=== PATIENT | female | born 1945 | race Caucasian/White ===

== ENCOUNTER 2016-06-17 19:42 | Observation (INO) | payer MEDICARE ==
[~2016-06-17] VITALS: Ht 160 cm; Wt 88.4 kg
[~2016-06-17 19:42] MED LIST: AMLO2.5T PO; ASPI-621 PO; ATOR40TA PO; CALC1CAP8 PO; FEXO180T72 PO; FLUT9.9S NS; LACT1TAB4 PO; LEVO125T45 PO; LISI-170 PO; TICA90TA PO
[2016-06-17] MEDS ORDERED: SODIUM CHLORIDE 0.9% 1,000ML IVBOLUS ONE (20:00)
[2016-06-17] MEDS ORDERED: SODIUM CHLORIDE FLUSH 10ML SYR IVF ONE (20:00)
[2016-06-17] MEDS ORDERED: ASPIRIN 81 MG TABLET CHEW PO ONE (20:00)
[2016-06-17 20:34] LABS: ASPARTATE AMINO TRANSFERASE 20 U/L (15-37); BLOOD UREA NITROGEN 16 mg/dL (7-18)
[2016-06-17 20:39] LABS: IS PT STATUS REG ER OR PRE ER? YES
[2016-06-17] MEDS ORDERED: CLOP75TA PO (21:16)
[2016-06-17] MEDS ORDERED: CALCIUM PO (21:16)
[2016-06-17] MEDS ORDERED: FLUTICASONE (21:16)
[2016-06-17] MEDS ORDERED: ONDANSETRON 2MG/ML, 2ML IVPush PRN (22:00)
[2016-06-17] MEDS ORDERED: MORPHINE SULFATE 4 MG/ML, 1ML IVPush PRN (22:00)
[2016-06-17] MEDS: SODIUM CHLORIDE 0.9% 1,000 ML IV SCH (22:55)
[2016-06-17] MEDS ORDERED: TRAZODONE 50MG TABLET PO PRN (23:00)
[2016-06-17] MEDS ORDERED: ENOXAPARIN 40 MG/0.4 ML SQ SCH (23:00)
[2016-06-17] MEDS ORDERED: ATORVASTATIN 40 MG TABLET PO SCH (23:00)
[2016-06-17] MEDS ORDERED: POLYETHYLENE GLYCOL 17 GM PACKET PO PRN (23:00)
[2016-06-17] MEDS ORDERED: BISACODYL 10 MG SUPP PR PRN (23:00)
[2016-06-17] MEDS ORDERED: ACETAMINOPHEN 325 MG TABLET PO PRN (23:00)
[2016-06-17] MEDS ORDERED: LABETALOL 5MG/ML, 20ML IV PRN (23:00)
[2016-06-17] MEDS ORDERED: DOCUSATE 100 MG CAPSULE PO PRN (23:00)
[2016-06-17] MEDS ORDERED: ONDANSETRON ODT 4 MG PO PRN (23:00)
[2016-06-17 23:08] VITALS: BP 123/75
[2016-06-18 04:37] VITALS: BP 110/71
[2016-06-18 05:12] LABS: BLOOD UREA NITROGEN 13 mg/dL (7-18)
[2016-06-18 05:19] LABS: ASPARTATE AMINO TRANSFERASE 16 U/L (15-37)
[2016-06-18 05:25] LABS: IS PT STATUS REG ER OR PRE ER? NO
[2016-06-18 08:40] VITALS: BP 133/83
[2016-06-18] MEDS ORDERED: LORATADINE 10 MG TABLET PO SCH (09:00)
[2016-06-18] MEDS ORDERED: ASPIRIN 81 MG TABLET EC PO SCH (09:00)
[2016-06-18] MEDS ORDERED: LISINOPRIL 20 MG TABLET PO SCH (09:00)
[2016-06-18] MEDS ORDERED: CLOPIDOGREL 75 MG TABLET PO SCH (09:00)
[2016-06-18] MEDS ORDERED: LEVOTHYROXINE 125 MCG TABLET PO SCH (09:00)
[2016-06-18] MEDS ORDERED: AMLODIPINE 2.5 MG TABLET PO SCH (09:00)
[2016-06-18] MEDS: SODIUM CHLORIDE 0.9% 1,000 ML IV SCH (09:03)
[2016-06-18 10:56] LABS: IS PT STATUS REG ER OR PRE ER? NO
== END 2016-06-18 14:46 | disposition home or self-care (01) ==
LOC: ED 21:34 → INTOOBSV 21:36 → EDIP 21:36 → 5SO 23:02
PROVIDERS: ADMIT Internal Medicine; ATTEND Internal Medicine
DX: R07.9 Chest pain, unspecified (principal); I25.2 Old myocardial infarction; E03.9 Hypothyroidism, unspecified; K21.9 Gastro-esophageal reflux disease without esophagitis; I25.10 Atherosclerotic heart disease of native coronary artery without angina pectoris; E87.1 Hypo-osmolality and hyponatremia; I10 Essential (primary) hypertension; Z85.850 Personal history of malignant neoplasm of thyroid; Z95.5 Presence of coronary angioplasty implant and graft
CPT/HCPCS: 36415; 71020; 80053; 83735; 84439; 84443; 84484; 85025; 93005; 96360; 96361; 96372; 99285; G0378; J1650; J7030

== ENCOUNTER 2016-06-29 06:31 | Day surgery (SDC) | payer MEDICARE ==
[2016-06-28 11:21] VITALS: BP 127/79
[2016-06-28 12:35] LABS: BLOOD UREA NITROGEN 17 mg/dL (7-18)
[~2016-06-29] VITALS: Ht 157.5 cm; Wt 87.7 kg
[~2016-06-29 06:31] MED LIST changes: +ASPI-496 PO; +CALCIUM PO; +CLOP75TA PO; +FLUT16SP NS; +FLUTICASONE
[2016-06-29] MEDS ORDERED: SODIUM CHLORIDE 0.9% 1,000 ML IV SCH (06:40)
[2016-06-29] MEDS ORDERED: FENTANYL PF 100 MCG/2ML ONE (06:55)
[2016-06-29] MEDS ORDERED: LIDOCAINE 2%, 20ML ONE (06:55)
[2016-06-29] MEDS ORDERED: MIDAZOLAM 1 MG/ML, 5ML ONE (06:55)
[2016-06-29] MEDS ORDERED: ZOLPIDEM 5MG TABLET PO PRN (07:00)
[2016-06-29] MEDS ORDERED: ACETAMINOPHEN 325 MG TABLET PO PRN (07:00)
[2016-06-29] MEDS ORDERED: BISACODYL 10 MG SUPP PR PRN (07:00)
[2016-06-29] MEDS ORDERED: ASPIRIN 325 MG TABLET EC PO ONE (07:00)
[2016-06-29] MEDS ORDERED: ONDANSETRON 2MG/ML, 2ML IVPush PRN (07:00)
== END 2016-06-29 10:45 | disposition home or self-care (01) ==
LOC: CACL 06:31
PROVIDERS: ATTEND Internal Medicine Cardiovascular Disease
DX: I25.119 Atherosclerotic heart disease of native coronary artery with unspecified angina pectoris (principal); I10 Essential (primary) hypertension; Z95.5 Presence of coronary angioplasty implant and graft; E78.5 Hyperlipidemia, unspecified; K21.9 Gastro-esophageal reflux disease without esophagitis; E89.0 Postprocedural hypothyroidism; Z85.850 Personal history of malignant neoplasm of thyroid; I25.2 Old myocardial infarction; Z88.3 Allergy status to other anti-infective agents; E55.9 Vitamin D deficiency, unspecified; E66.01 Morbid (severe) obesity due to excess calories; Z68.35 Body mass index [BMI] 35.0-35.9, adult; Z79.01 Long term (current) use of anticoagulants
CPT/HCPCS: 36415; 80048; 85025; 85610; 85730; 93458; C1760; C1894; J2250; J3010; J3490; Q9967

== ENCOUNTER → 2017-03-09 | Outpatient (CLI) | payer MEDICARE ==
[~2017-03-09] MED LIST changes: +FEXO180T15 PO; +FEXO60TA9 PO; -LEVO125T45 PO; +LEVO125T63 PO; +LOSA100T6 PO; +[UNRECOGNIZED DRUG - REMARK]
== END | disposition home or self-care (01) ==
LOC: PETCFH 07:35
PROVIDERS: ATTEND Internal Medicine Endocrinology, Diabetes & Metabolism
DX: C73 Malignant neoplasm of thyroid gland (principal)
CPT/HCPCS: 78815; A9552

== ENCOUNTER 2017-05-06 13:49 | Emergency (ER) | payer MEDICARE ==
[~2017-05-06] VITALS: Ht 160 cm; Wt 90.5 kg
[2017-05-06 13:51] VITALS: BP 172/72
[2017-05-06 14:24] LABS: MICROSCOPIC AUTO
[2017-05-06 14:54] LABS: CULTURE INDICATED? YES
[2017-05-06] MEDS ORDERED: METHOCARBAMOL 750 MG TABLET ONE (15:11)
[2017-05-06] MEDS ORDERED: METHOCARBAMOL 750 MG TABLET PO ONE (15:30)
== END 2017-05-06 15:21 | disposition home or self-care (01) ==
LOC: ED 15:00
DX: S39.012A Strain of muscle, fascia and tendon of lower back, initial encounter (principal); K21.9 Gastro-esophageal reflux disease without esophagitis; E78.00 Pure hypercholesterolemia, unspecified; E11.9 Type 2 diabetes mellitus without complications; E03.9 Hypothyroidism, unspecified; I10 Essential (primary) hypertension; Y93.89 Activity, other specified; Y92.89 Other specified places as the place of occurrence of the external cause; Y99.8 Other external cause status; Z85.850 Personal history of malignant neoplasm of thyroid; X58.XXXA Exposure to other specified factors, initial encounter
CPT/HCPCS: 81001; 87086; 99284

== ENCOUNTER 2017-05-16 21:56 | Emergency (ER) | payer MEDICARE ==
[~2017-05-16] VITALS: Ht 160 cm; Wt 90.8 kg
[2017-05-16] MEDS ORDERED: SODIUM CHLORIDE FLUSH 10ML SYR IVF ONE (22:30)
[2017-05-16] MEDS ORDERED: ASPIRIN 81 MG TABLET CHEW PO ONE (22:30)
[2017-05-16] MEDS ORDERED: ASPIRIN 81 MG TABLET CHEW ONE (22:41)
[2017-05-16 22:43] VITALS: BP 145/81
[2017-05-16 22:47] LABS: BASOPHILS # (AUTO) 0.04 x10^3/uL (0-0.1); BASOPHILS % (AUTO) 1 % (0-1); EOSINOPHILS # (AUTO) 0.19 x10^3/uL (0-0.4); EOSINOPHILS % (AUTO) 3 % (1-7); LYMPHOCYTES # (AUTO) 2.09 x10^3/uL (1-3.4); LYMPHOCYTES % (AUTO) 35 % (22-44); MD NO; MEAN CORPUSCULAR HEMOGLOBIN 29.7 pg (27.0-34.8); MEAN CORPUSCULAR HGB CONC 34.1 g/dL (32.4-35.8); MEAN CORPUSCULAR VOLUME 87.1 fL (80-100); MEAN PLATELET VOLUME 7.9 fL (7.4-10.4); MONOCYTES % (AUTO) 7 % (2-9); NEUTROPHILS % (AUTO) 55 % (42-75); PLATELET COUNT 279 x10^3/uL (130-400); RED BLOOD COUNT 4.37 x10^6/uL (3.82-5.3); RED CELL DISTRIBUTION WIDTH 12.8 % (9.6-15.2)
[2017-05-16 22:57] LABS: ALBUMIN 3.5 g/dL (3.4-5.0); ANION GAP 8 mmol/L (5-15); CALCIUM 8.4 mg/dL (8.5-10.1); CHLORIDE 103 mmol/L (98-107); CREATININE 0.82 mg/dL (0.55-1.02)
[2017-05-16 23:03] LABS: TROPONIN I < 0.015 ng/mL (0.000-0.045)
== END 2017-05-16 23:47 | disposition home or self-care (01) ==
LOC: ED 23:15
DX: R07.2 Precordial pain (principal); R06.00 Dyspnea, unspecified; C73 Malignant neoplasm of thyroid gland; E03.9 Hypothyroidism, unspecified; E11.9 Type 2 diabetes mellitus without complications; F41.9 Anxiety disorder, unspecified; I10 Essential (primary) hypertension; J45.909 Unspecified asthma, uncomplicated; K21.9 Gastro-esophageal reflux disease without esophagitis; Z95.5 Presence of coronary angioplasty implant and graft
CPT/HCPCS: 36415; 71045; 80048; 82040; 84484; 85025; 93005; 99285

== ENCOUNTER 2018-02-18 01:01 | Emergency (ER) | payer MEDICARE ==
[~2018-02-18] VITALS: Ht 160 cm; Wt 90.0 kg
[~2018-02-18 01:01] MED LIST changes: -AMLO2.5T PO; +AMLO2.5T3 PO; -ASPI-621 PO; +ASPI81TA45 PO; -LOSA100T6 PO; +LOSA100T7 PO
--- NOTE | 2018-02-18 01:15 | NUR ---
PT PRESENTED WITH C/O LLQ ABD PAIN X12 HOURS WITH NAUSEA. MONITORS APPLIED, SIDERAILS X2 UP, CALL LIGHT WITHIN REACH.
--- NOTE | 2018-02-18 01:18 | NUR ---
urine sample sent
[2018-02-18 01:27] LABS: MICROSCOPIC AUTO
[2018-02-18 01:29] LABS: CULTURE INDICATED? YES
[2018-02-18 01:29] LABS: BASOPHILS # (AUTO) 0.04 x10^3/uL (0-0.1); BASOPHILS % (AUTO) 0 % (0-1); EOSINOPHILS # (AUTO) 0.21 x10^3/uL (0-0.4); EOSINOPHILS % (AUTO) 2 % (1-7); LYMPHOCYTES # (AUTO) 1.86 x10^3/uL (1-3.4); LYMPHOCYTES % (AUTO) 21 % (22-44); MD NO; MEAN CORPUSCULAR HGB CONC 33.5 g/dL (32.4-35.8); MEAN CORPUSCULAR VOLUME 86.4 fL (80-100); MEAN PLATELET VOLUME 8.4 fL (7.4-10.4); MONOCYTES # (AUTO) 0.54 x10^3/uL (0.2-0.8); MONOCYTES % (AUTO) 6 % (2-9); NEUTROPHILS # (AUTO) 6.21 x10^3/uL (1.8-6.8); NEUTROPHILS % (AUTO) 70 % (42-75); PLATELET COUNT 250 x10^3/uL (130-400); RED CELL DISTRIBUTION WIDTH 13.3 % (9.6-15.2)
[2018-02-18 01:41] LABS: ALANINE AMINOTRANSFERASE 29 U/L (12-78); ANION GAP 8 mmol/L (5-15); CALCIUM 8.6 mg/dL (8.5-10.1); CHLORIDE 105 mmol/L (98-107); CREATININE 0.82 mg/dL (0.55-1.02)
[2018-02-18 01:43] LABS: ALKALINE PHOSPHATASE 70 U/L (45-117); BILIRUBIN,TOTAL 0.4 mg/dL (0.2-1.0); TOTAL PROTEIN 7.8 g/dL (6.4-8.2)
--- NOTE | 2018-02-18 01:56 | NUR ---
IV SITE STARTED. PT TO CT
[2018-02-18] MEDS ORDERED: OMNIPAQUE 350 MG/ML, 100ML BOTTLE ONE (02:00)
[2018-02-18 02:28] VITALS: BP 140/82
[2018-02-18] MEDS ORDERED: FLUT100B INH (02:28)
[2018-02-18] MEDS ORDERED: FENO145T32 PO (02:28)
--- NOTE | 2018-02-18 02:30 | NUR ---
PT RESTING ON [place], MONITORS IN PLACE, CALL LIGHT WITHIN REACH, CHART UP FOR RECHECK.
--- NOTE | 2018-02-18 02:35 | NUR ---
pa at bedside for recheck
--- NOTE | 2018-02-18 02:39 | NUR ---
IV SITE D/C'D, 2X2 DRSG APPLIED, HOMESTATIS ACHIEVED.
[2018-02-18] MEDS ORDERED: CIPROFLOXACIN 500 MG TABLET ONE (02:48)
[2018-02-18] MEDS ORDERED: HYDROcodone/APAP 5/325 TABLET ONE (02:49)
--- NOTE | 2018-02-18 02:51 | NUR ---
PT MEDICATED PER MAR
[2018-02-18] MEDS ORDERED: HYDROcodone/APAP 5/325 TABLET PO ONE (03:00)
[2018-02-18] MEDS ORDERED: CIPROFLOXACIN 500 MG TABLET PO ONE (03:00)
== END 2018-02-18 03:04 | disposition home or self-care (01) ==
LOC: ED 01:18
DX: K57.32 Diverticulitis of large intestine without perforation or abscess without bleeding (principal); E03.9 Hypothyroidism, unspecified; K21.9 Gastro-esophageal reflux disease without esophagitis; E78.00 Pure hypercholesterolemia, unspecified; E78.5 Hyperlipidemia, unspecified; I25.2 Old myocardial infarction; I25.10 Atherosclerotic heart disease of native coronary artery without angina pectoris; J45.909 Unspecified asthma, uncomplicated; Z90.710 Acquired absence of both cervix and uterus
CPT/HCPCS: 36415; 74177; 80053; 81001; 83690; 85025; 87086; 99284; Q9967

== ENCOUNTER 2018-02-28 21:07 | Inpatient (IN) | payer MEDICARE ==
[~2018-02-28] VITALS: Ht 157.5 cm; Wt 87.1 kg
[~2018-02-28 21:07] MED LIST changes: +FENO145T32 PO; +FLUT100B INH
--- NOTE | 2018-02-28 22:32 | NUR ---
TO ROOM FROM LOBBY. NAD.
--- NOTE | 2018-02-28 22:51 | NUR ---
PT. TO BR AND BACK TO ROOM AFTER PROVIDING URINE SAMPLE. PT. AMBULATES WITH STEADY GIAT. PT. REPORTS WAS HERE FOR DIVERTICULITIS WAS GIVEN ABX AND TOOK ENTIRE COURSE; WENT TO PRIMARY CARE ON AND RX FOR NEW ABD GIVEN AND HAS BEEN TAKING AUGMENTIN ORDERED WELL PAIN MEDS. PT. REPORTS PAIN HAS GOTTEN WORSE AND NOT BETTER. DENIES DIARRHEA; LAST BM TODAY, DENIES ANY LOOSE STOOLS. C/O NAUSEA BUT NO VOMITING. SISTER AT BS WITH PT. CONTINUOUS PULSE OX AND B/P MONITORS PLACED. CALL LIGHT IN REACH. ALL SAFETY MEASURES OBSERVED.
--- NOTE | 2018-02-28 22:59 | NUR ---
DR. MCLAUGHLIN AT BS TO EVAL PT. AND DISCUSS POC.
[2018-02-28 23:02] LABS: BASOPHILS # (AUTO) 0.03 x10^3/uL (0-0.1); BASOPHILS % (AUTO) 0 % (0-1); EOSINOPHILS # (AUTO) 0.19 x10^3/uL (0-0.4); EOSINOPHILS % (AUTO) 2 % (1-7); LYMPHOCYTES % (AUTO) 20 % (22-44); MD NO; MEAN CORPUSCULAR HEMOGLOBIN 28.8 pg (27.0-34.8); MEAN CORPUSCULAR HGB CONC 33.6 g/dL (32.4-35.8); MEAN CORPUSCULAR VOLUME 85.6 fL (80-100); MEAN PLATELET VOLUME 7.6 fL (7.4-10.4); MONOCYTES # (AUTO) 0.64 x10^3/uL (0.2-0.8); MONOCYTES % (AUTO) 7 % (2-9); NEUTROPHILS # (AUTO) 6.66 x10^3/uL (1.8-6.8); NEUTROPHILS % (AUTO) 71 % (42-75); PLATELET COUNT 333 x10^3/uL (130-400); RED BLOOD COUNT 4.51 x10^6/uL (3.82-5.3); RED CELL DISTRIBUTION WIDTH 13.3 % (9.6-15.2)
[2018-02-28] MEDS ORDERED: ACETAMINOPHEN 500 MG TABLET ONE (23:08)
[2018-02-28 23:12] LABS: ALANINE AMINOTRANSFERASE 20 U/L (12-78); ALBUMIN 3.8 g/dL (3.4-5.0); ANION GAP 8 mmol/L (5-15); CALCIUM 8.8 mg/dL (8.5-10.1); CHLORIDE 101 mmol/L (98-107); CREATININE 0.67 mg/dL (0.55-1.02)
[2018-02-28 23:14] LABS: ALKALINE PHOSPHATASE 61 U/L (45-117); BILIRUBIN,TOTAL 0.4 mg/dL (0.2-1.0); TOTAL PROTEIN 7.7 g/dL (6.4-8.2)
[2018-02-28 23:17] LABS: MICROSCOPIC NOT IND
--- NOTE | 2018-02-28 23:18 | NUR ---
PT. MEDICATED PER APR FOR 310 LEFT LOWER QUAD ABD PAIN. PT. REPORTS PAIN COMES AND GOES AND WHEN IT IS AT IT'S WORST IT'S VERY SHARP AND 8-9/10. IV STARTED. LABS HAVE ALL BEEN DRAWN. URINE SENT TO LAB. AWAITING CT.
[2018-02-28 23:24] LABS: CULTURE INDICATED? NO
[2018-02-28] MEDS ORDERED: ACETAMINOPHEN 500 MG TABLET PO ONE (23:30)
--- NOTE | 2018-02-28 23:33 | NUR ---
PT REPORT FROM VERNON MARTINEZ. THIS RN TO ASSUME CARE OF PT. PT TO CT.
[2018-02-28] MEDS ORDERED: OMNIPAQUE 350 MG/ML, 100ML BOTTLE ONE (23:45)
--- NOTE | 2018-03-01 00:08 | NUR ---
PT. REPORTS NO PAIN AT THIS TIME. VS UPDATED. AWAITING CT RESULTS. PT. DENIES NEEDS. ALL SAFETY MEASUERS OBSERVED.
--- NOTE | 2018-03-01 00:59 | NUR ---
ALL RESULTS BACK. PT UP FOR RECHECK.
--- NOTE | 2018-03-01 01:10 | NUR ---
ANITRA. NO IMMEDIATE NEEDS FROM PT. FRIEND AT BEDSIDE. MD AT BEDSIDE FOR RECHECK. VSS. CALL LIGHT WITHIN REACH.
[2018-03-01] MEDS ORDERED: PIPERACILLIN/TAZO/PMX 3.375GM 50 ML ONE (01:58)
[2018-03-01] MEDS ORDERED: PIPERACILLIN/TAZO/PMX 3.375GM 50 ML IV ONE (02:00)
--- NOTE | 2018-03-01 02:14 | NUR ---
PT GIVEN SANDWICH AT THIS TIME PER MD ORDER.
[2018-03-01] MEDS ORDERED: DOCUSATE 100 MG CAPSULE PO PRN (02:30)
[2018-03-01] MEDS ORDERED: morphine SULFATE 10 MG/ML, 1ML IVPush PRN (02:30)
[2018-03-01] MEDS ORDERED: ACETAMINOPHEN 325 MG TABLET PO PRN (02:30)
[2018-03-01] MEDS ORDERED: POLYETHYLENE GLYCOL 17 GM PACKET PO PRN (02:30)
[2018-03-01] MEDS ORDERED: GABAPENTIN 300 MG CAPSULE PO PRN (02:30)
[2018-03-01] MEDS ORDERED: PROMETHAZINE 25 MG/ML, 1ML IM PRN (02:30)
[2018-03-01] MEDS ORDERED: hydrALAzine 20 MG/ML, 1ML IVPush PRN (02:30)
[2018-03-01] MEDS ORDERED: ONDANSETRON 2MG/ML, 2ML IVPush PRN (02:30)
[2018-03-01] MEDS ORDERED: ONDANSETRON ODT 4 MG PO PRN (02:30)
[2018-03-01] MEDS ORDERED: OXYcodone IR 5MG TABLET PO PRN (02:30)
[2018-03-01] MEDS ORDERED: LABETALOL 5MG/ML, 20ML IVPush PRN (02:30)
[2018-03-01 03:00] VITALS: BP 117/72
[2018-03-01 03:05] LABS: FREE T4 (FREE THYROXINE) 1.74 ng/dL (0.76-1.46); THYROID STIMULATING HORMONE 0.09 mIU/L (0.358-3.740)
[2018-03-01 03:11] LABS: HEMOGLOBIN A1C 6.8 % (4.2-6.3)
[2018-03-01] MEDS: SODIUM CHLORIDE 0.9% 1,000 ML IV SCH ×2 (04:06→15:00)
[2018-03-01] MEDS: ASPIRIN 81 MG TABLET EC PO SCH (05:53)
[2018-03-01] MEDS: LEVOTHYROXINE 125 MCG TABLET PO SCH (05:53)
[2018-03-01 06:54] VITALS: BP 108/70
[2018-03-01] MEDS: PIPERACILLIN/TAZO/PMX 3.375GM 50 ML IV SCH ×3 (08:27→20:37)
[2018-03-01] MEDS: FENOFIBRATE 145 MG TABLET PO SCH (08:28)
[2018-03-01] MEDS: CLOPIDOGREL 75 MG TABLET PO SCH (08:28)
[2018-03-01] MEDS: CALCIUM CARBONATE 500 MG TABLET PO SCH (08:28)
[2018-03-01] MEDS: LOSARTAN 50MG TABLET PO SCH (08:28)
[2018-03-01] MEDS: LORATADINE 10 MG TABLET PO SCH (08:28)
[2018-03-01] MEDS: AMLODIPINE 2.5 MG TABLET PO SCH (08:28)
[2018-03-01] MEDS ORDERED: BUDESONIDE 0.5 MG/2 ML INHA NPPB SCH (09:00)
[2018-03-01] MEDS: FLUTICASONE NASAL SPRAY 16GM NAS SCH (09:40)
[2018-03-01 14:00] VITALS: BP 125/74
[2018-03-01 16:42] VITALS: BP 125/74
[2018-03-01 18:55] VITALS: BP 128/75
[2018-03-01] MEDS: ATORVASTATIN 40 MG TABLET PO SCH (20:37)
[2018-03-02 01:22] VITALS: BP 107/70
[2018-03-02] MEDS: PIPERACILLIN/TAZO/PMX 3.375GM 50 ML IV SCH ×4 (01:42→20:20)
[2018-03-02 05:41] LABS: BASOPHILS # (AUTO) 0.04 x10^3/uL (0-0.1); BASOPHILS % (AUTO) 1 % (0-1); EOSINOPHILS # (AUTO) 0.22 x10^3/uL (0-0.4); EOSINOPHILS % (AUTO) 4 % (1-7); LYMPHOCYTES # (AUTO) 1.63 x10^3/uL (1-3.4); LYMPHOCYTES % (AUTO) 30 % (22-44); MD NO; MEAN CORPUSCULAR HEMOGLOBIN 29.2 pg (27.0-34.8); MEAN CORPUSCULAR VOLUME 85.8 fL (80-100); MEAN PLATELET VOLUME 7.7 fL (7.4-10.4); MONOCYTES # (AUTO) 0.41 x10^3/uL (0.2-0.8); MONOCYTES % (AUTO) 8 % (2-9); NEUTROPHILS # (AUTO) 3.13 x10^3/uL (1.8-6.8); NEUTROPHILS % (AUTO) 58 % (42-75); PLATELET COUNT 267 x10^3/uL (130-400); RED BLOOD COUNT 3.78 x10^6/uL (3.82-5.3); RED CELL DISTRIBUTION WIDTH 13.4 % (9.6-15.2)
[2018-03-02 05:52] LABS: CHLORIDE 107 mmol/L (98-107)
[2018-03-02 06:03] LABS: ALANINE AMINOTRANSFERASE 16 U/L (12-78); ALKALINE PHOSPHATASE 44 U/L (45-117); ANION GAP 7 mmol/L (5-15); BILIRUBIN,TOTAL 0.6 mg/dL (0.2-1.0); CALCIUM 8.1 mg/dL (8.5-10.1); CHOL/HDL RATIO 2.4; CHOLESTEROL, TOTAL 130 mg/dL (140-239); CREATININE 0.66 mg/dL (0.55-1.02); HDL CHOL % 42 % (28-40); HDL CHOLESTEROL (DIRECT) 54 mg/dL (40-60); LDL CHOLESTEROL,CALCULATED 58 mg/dL (54-169); LDL/HDL RATIO 1.1 (0.5-3.0); TOTAL PROTEIN 6.3 g/dL (6.4-8.2); TRIGLYCERIDES 92 mg/dL (50-200); VLDL CHOLESTEROL 18 mg/dL (0-25)
[2018-03-02] MEDS: LEVOTHYROXINE 125 MCG TABLET PO SCH (06:05)
[2018-03-02] MEDS: ASPIRIN 81 MG TABLET EC PO SCH (06:05)
[2018-03-02 06:33] VITALS: BP 123/79
[2018-03-02] MEDS: FLUTICASONE NASAL SPRAY 16GM NAS SCH (08:05)
[2018-03-02] MEDS: CALCIUM CARBONATE 500 MG TABLET PO SCH (08:06)
[2018-03-02] MEDS: AMLODIPINE 2.5 MG TABLET PO SCH (08:06)
[2018-03-02] MEDS: FENOFIBRATE 145 MG TABLET PO SCH (08:06)
[2018-03-02] MEDS: LOSARTAN 50MG TABLET PO SCH (08:06)
[2018-03-02] MEDS: LORATADINE 10 MG TABLET PO SCH (08:06)
[2018-03-02] MEDS: CLOPIDOGREL 75 MG TABLET PO SCH (08:07)
[2018-03-02] MEDS: FLUTICASONE FUROATE 100MCG/INH INH SCH (08:07)
[2018-03-02 12:43] VITALS: BP 129/80
[2018-03-02] MEDS: ATORVASTATIN 40 MG TABLET PO SCH (20:20)
[2018-03-02 21:46] VITALS: BP 111/70
[2018-03-03] MEDS: PIPERACILLIN/TAZO/PMX 3.375GM 50 ML IV SCH ×2 (02:15→07:57)
[2018-03-03 02:21] VITALS: BP 107/65
[2018-03-03 05:20] LABS: BASOPHILS # (AUTO) 0.05 x10^3/uL (0-0.1); BASOPHILS % (AUTO) 1 % (0-1); EOSINOPHILS # (AUTO) 0.14 x10^3/uL (0-0.4); EOSINOPHILS % (AUTO) 3 % (1-7); LYMPHOCYTES # (AUTO) 1.73 x10^3/uL (1-3.4); LYMPHOCYTES % (AUTO) 35 % (22-44); MD NO; MEAN CORPUSCULAR HEMOGLOBIN 28.5 pg (27.0-34.8); MEAN CORPUSCULAR HGB CONC 33.2 g/dL (32.4-35.8); MEAN CORPUSCULAR VOLUME 85.8 fL (80-100); MEAN PLATELET VOLUME 7.8 fL (7.4-10.4); MONOCYTES # (AUTO) 0.49 x10^3/uL (0.2-0.8); MONOCYTES % (AUTO) 10 % (2-9); NEUTROPHILS # (AUTO) 2.52 x10^3/uL (1.8-6.8); NEUTROPHILS % (AUTO) 51 % (42-75); PLATELET COUNT 281 x10^3/uL (130-400); RED BLOOD COUNT 3.92 x10^6/uL (3.82-5.3); RED CELL DISTRIBUTION WIDTH 13.4 % (9.6-15.2)
[2018-03-03 05:30] LABS: ANION GAP 6 mmol/L (5-15); CALCIUM 8.5 mg/dL (8.5-10.1); CHLORIDE 105 mmol/L (98-107)
[2018-03-03 05:31] LABS: CREATININE 0.77 mg/dL (0.55-1.02)
[2018-03-03] MEDS: ASPIRIN 81 MG TABLET EC PO SCH (06:10)
[2018-03-03] MEDS: LEVOTHYROXINE 125 MCG TABLET PO SCH (06:10)
[2018-03-03 06:50] VITALS: BP 128/75
[2018-03-03] MEDS: FENOFIBRATE 145 MG TABLET PO SCH (07:57)
[2018-03-03] MEDS: FLUTICASONE NASAL SPRAY 16GM NAS SCH (07:57)
[2018-03-03] MEDS: CALCIUM CARBONATE 500 MG TABLET PO SCH (07:57)
[2018-03-03] MEDS: AMLODIPINE 2.5 MG TABLET PO SCH (07:58)
[2018-03-03] MEDS: LORATADINE 10 MG TABLET PO SCH (07:58)
[2018-03-03] MEDS: CLOPIDOGREL 75 MG TABLET PO SCH (07:58)
[2018-03-03] MEDS: LOSARTAN 50MG TABLET PO SCH (07:58)
[2018-03-03] MEDS: FLUTICASONE FUROATE 100MCG/INH INH SCH (09:00)
== END 2018-03-03 11:35 | disposition home or self-care (01) | DRG 392 ==
LOC: ED 23:59 → EDIP 03-01 02:11 → 4NOR 03-01 02:53
PROVIDERS: ADMIT Internal Medicine; ATTEND Internal Medicine
DX: K57.32 Diverticulitis of large intestine without perforation or abscess without bleeding (principal); E87.1 Hypo-osmolality and hyponatremia; E11.9 Type 2 diabetes mellitus without complications; E78.5 Hyperlipidemia, unspecified; E89.0 Postprocedural hypothyroidism; I10 Essential (primary) hypertension; I25.10 Atherosclerotic heart disease of native coronary artery without angina pectoris; I25.2 Old myocardial infarction; J45.909 Unspecified asthma, uncomplicated; Z85.850 Personal history of malignant neoplasm of thyroid; Z88.3 Allergy status to other anti-infective agents; Z90.710 Acquired absence of both cervix and uterus; Z95.5 Presence of coronary angioplasty implant and graft; Z88.8 Allergy status to other drugs, medicaments and biological substances; Z91.018 Allergy to other foods; Z79.82 Long term (current) use of aspirin; Z79.899 Other long term (current) drug therapy
CPT/HCPCS: 36415; 74177; 80048; 80053; 80061; 81003; 83036; 83605; 83690; 83735; 84439; 84443; 85025; 87040; 96365; G0378; J2543; Q9967; J7030

== ENCOUNTER 2018-06-02 10:11 | Observation (INO) | payer MEDICARE ==
[~2018-06-02] VITALS: Ht 157.5 cm; Wt 84.5 kg
[~2018-06-02 10:11] MED LIST changes: -AMLO2.5T3 PO; +AMLO2.5T5 PO; +LOSA100T14 PO; -LOSA100T7 PO
--- NOTE | 2018-06-02 10:25 | NUR ---
PT PRESENTED TO ED WITH PALPITATIONS SINCE THIS AM WHILE SHE WAS BRUSHING HER TEETH. PT WITH HX: VT AND THYROID CANCER. PT A&OX4 AND UP INDEPENDENTLY. PT PLACED IN ROOM AND PLACED ON BP, CARDIAC, AND CONT. PULSE OXIMETER. ASSESSMENT COMPLETED. EKG DONE IN TRIAGE AND PRESENTED TO MD. CALL LIGHT IN REACH.
--- NOTE | 2018-06-02 10:36 | NUR ---
REPORT GIVEN TO DAX MARTINEZ
--- NOTE | 2018-06-02 10:45 | NUR ---
assumed care of tp. report from Ivet MARTINEZ. pt here c/o intermittent palpitations since this AM. nothing makes it better or worse. states that she has been having slight intermittent chest discomfort, but denies at this time. states that she has a hx of cardiac stent x1 about 2 years ago. states that she took 81mg ASA this AM. A&O x4. calm and cooperative. no apparent distress at this time. friend at bedside. repeat EKG at bedside
[2018-06-02] MEDS ORDERED: ASPIRIN 81 MG TABLET CHEW PO ONE (11:00)
[2018-06-02] MEDS ORDERED: NITROGLYCERIN SINGLE TAB 0.4 MG SL PRN (11:00)
[2018-06-02] MEDS ORDERED: SODIUM CHLORIDE FLUSH 10ML SYR IVF ONE (11:00)
--- NOTE | 2018-06-02 11:11 | NUR ---
BEDSIDE REPORT FROM DAX MARTINEZ, PT RESTING IN [facility] ON MONITOR WITH FRIEND AT BEDSIDE. EKG DONE
--- NOTE | 2018-06-02 11:12 | NUR ---
report to Jose Alejandro MARTINEZ
[2018-06-02 11:15] LABS: BASOPHILS # (AUTO) 0.04 x10^3/uL (0-0.1); BASOPHILS % (AUTO) 1 % (0-1); EOSINOPHILS # (AUTO) 0.15 x10^3/uL (0-0.4); EOSINOPHILS % (AUTO) 3 % (1-7); LYMPHOCYTES % (AUTO) 28 % (22-44); MD NO; MEAN CORPUSCULAR HEMOGLOBIN 28.8 pg (27.0-34.8); MEAN CORPUSCULAR HGB CONC 33.6 g/dL (32.4-35.8); MEAN CORPUSCULAR VOLUME 85.7 fL (80-100); MEAN PLATELET VOLUME 8.3 fL (7.4-10.4); MONOCYTES # (AUTO) 0.33 x10^3/uL (0.2-0.8); MONOCYTES % (AUTO) 6 % (2-9); NEUTROPHILS # (AUTO) 3.28 x10^3/uL (1.8-6.8); NEUTROPHILS % (AUTO) 62 % (42-75); PLATELET COUNT 286 x10^3/uL (130-400); RED BLOOD COUNT 4.41 x10^6/uL (3.82-5.3); RED CELL DISTRIBUTION WIDTH 14.2 % (9.6-15.2)
[2018-06-02] MEDS ORDERED: NITROGLYCERIN SINGLE TAB 0.4 MG SL ONE (11:16)
[2018-06-02 11:23] LABS: INTERNATIONAL NORMALIZED RATIO 1.03 (0.93-1.1); PROTHROMBIN TIME 10.8 Seconds (9.6-11.5)
[2018-06-02 11:25] LABS: ALBUMIN 3.6 g/dL (3.4-5.0); ANION GAP 8 mmol/L (5-15); CALCIUM 8.9 mg/dL (8.5-10.1); CHLORIDE 107 mmol/L (98-107); CREATININE 0.88 mg/dL (0.55-1.02)
[2018-06-02 11:28] LABS: TROPONIN I < 0.015 ng/mL (0.000-0.045)
--- NOTE | 2018-06-02 12:10 | NUR ---
PT RESTING IN [place] WITH FRIEND AT BEDSIDE, WATCHING TV, VSS. AWAITING LAB RESULTS
--- NOTE | 2018-06-02 12:58 | NUR ---
REPORT TO HAN RN, PT TO [phone]
[2018-06-02] MEDS ORDERED: SODIUM CHLORIDE FLUSH 10ML SYR IVF PRN (13:00)
[2018-06-02 13:17] VITALS: BP 102/58
[2018-06-02] MEDS ORDERED: FLUT1BLS INH (13:56)
[2018-06-02] MEDS ORDERED: LEVO125T5 PO (13:56)
[2018-06-02] MEDS ORDERED: DOCUSATE 100 MG CAPSULE PO PRN (14:30)
[2018-06-02] MEDS ORDERED: BISACODYL 10 MG SUPP PR PRN (14:30)
[2018-06-02] MEDS ORDERED: ALBUTEROL SULFATE 2.5 MG/3 ML HHN SCH (15:00)
[2018-06-02] MEDS ORDERED: BUDESONIDE 0.5 MG/2 ML INHA HHN SCH (15:00)
[2018-06-02] MEDS: HEPARIN 5,000 UNITS/ML, 1ML SQ SCH ×2 (15:09→22:21)
[2018-06-02 15:26] LABS: TROPONIN I < 0.015 ng/mL (0.000-0.045)
[2018-06-02 15:28] LABS: HEMOGLOBIN A1C 6.6 % (4.2-6.3)
[2018-06-02] MEDS ORDERED: MAALOX/HYOSCYAMINE/LIDOCAINE 45 ML BTL PO ONE (15:30)
[2018-06-02] MEDS ORDERED: ALBUTEROL SULFATE 2.5 MG/3 ML HHN PRN (16:30)
[2018-06-02 19:01] VITALS: BP 114/74
[2018-06-02] MEDS: SODIUM CHLORIDE FLUSH 10ML SYR IVF SCH (20:30)
[2018-06-02 20:44] LABS: TROPONIN I < 0.015 ng/mL (0.000-0.045)
[2018-06-02] MEDS ORDERED: ATORVASTATIN 40 MG TABLET PO SCH (21:00)
[2018-06-03 02:45] VITALS: BP 133/79
[2018-06-03 04:57] LABS: BASOPHILS # (AUTO) 0.03 x10^3/uL (0-0.1); BASOPHILS % (AUTO) 1 % (0-1); EOSINOPHILS # (AUTO) 0.23 x10^3/uL (0-0.4); EOSINOPHILS % (AUTO) 4 % (1-7); LYMPHOCYTES # (AUTO) 2.13 x10^3/uL (1-3.4); LYMPHOCYTES % (AUTO) 36 % (22-44); MD NO; MEAN CORPUSCULAR HEMOGLOBIN 28.8 pg (27.0-34.8); MEAN CORPUSCULAR HGB CONC 33.7 g/dL (32.4-35.8); MEAN CORPUSCULAR VOLUME 85.4 fL (80-100); MEAN PLATELET VOLUME 8.1 fL (7.4-10.4); MONOCYTES # (AUTO) 0.49 x10^3/uL (0.2-0.8); MONOCYTES % (AUTO) 8 % (2-9); NEUTROPHILS # (AUTO) 3.02 x10^3/uL (1.8-6.8); NEUTROPHILS % (AUTO) 51 % (42-75); PLATELET COUNT 250 x10^3/uL (130-400); RED BLOOD COUNT 4.22 x10^6/uL (3.82-5.3); RED CELL DISTRIBUTION WIDTH 14.4 % (9.6-15.2)
[2018-06-03 05:08] LABS: ALBUMIN 3.6 g/dL (3.4-5.0); ANION GAP 6 mmol/L (5-15); CALCIUM 8.2 mg/dL (8.5-10.1); CHLORIDE 108 mmol/L (98-107)
[2018-06-03 05:12] LABS: ALANINE AMINOTRANSFERASE 26 U/L (12-78); ALKALINE PHOSPHATASE 58 U/L (45-117); BILIRUBIN,TOTAL 0.4 mg/dL (0.2-1.0); CREATININE 0.72 mg/dL (0.55-1.02); TOTAL PROTEIN 6.5 g/dL (6.4-8.2)
[2018-06-03] MEDS: HEPARIN 5,000 UNITS/ML, 1ML SQ SCH ×2 (06:30→13:21)
[2018-06-03] MEDS ORDERED: LEVOTHYROXINE 25 MCG TABLET ONE ×3 (07:56→08:17)
[2018-06-03] MEDS ORDERED: LEVOTHYROXINE 100 MCG TABLET ONE ×2 (07:58→08:16)
[2018-06-03] MEDS: SODIUM CHLORIDE FLUSH 10ML SYR IVF SCH (08:10)
[2018-06-03 08:24] VITALS: BP 129/78
[2018-06-03] MEDS ORDERED: LOSARTAN 50MG TABLET PO SCH (09:00)
[2018-06-03] MEDS ORDERED: FLUTICASONE/VILANTEROL 200-25MCG/INH INH SCH (09:00)
[2018-06-03] MEDS ORDERED: CALCIUM CARBONATE 500 MG TABLET PO SCH (09:00)
[2018-06-03] MEDS ORDERED: FENOFIBRATE 145 MG TABLET PO SCH (09:00)
[2018-06-03] MEDS ORDERED: CETIRIZINE 10 MG TABLET PO SCH (09:00)
[2018-06-03] MEDS ORDERED: AMLODIPINE 2.5 MG TABLET PO SCH (09:00)
[2018-06-03] MEDS ORDERED: FLUTICASONE NASAL SPRAY 16GM NAS SCH (09:00)
[2018-06-03] MEDS ORDERED: ASPIRIN 81 MG TABLET EC PO SCH (09:00)
[2018-06-03] MEDS ORDERED: LEVOTHYROXINE 125 MCG TABLET PO SCH (09:00)
[2018-06-03] MEDS ORDERED: D5%-0.45% NACL 1,000 ML IV SCH (09:30)
[2018-06-03] MEDS ORDERED: REGADENOSON 0.4 MG/5 ML SYRINGE ONE (11:07)
[2018-06-03 13:00] VITALS: BP 124/68
[2018-06-04] MEDS ORDERED: LEVOTHYROXINE 125 MCG TABLET PO SCH (06:00)
== END 2018-06-03 16:10 | disposition home or self-care (01) ==
LOC: ED 11:05 → EDIP 12:32 → INTOOBSV 12:32 → 5SO 13:19
PROVIDERS: ADMIT Hospitalist; ATTEND Hospitalist
DX: R07.89 Other chest pain (principal); I25.110 Atherosclerotic heart disease of native coronary artery with unstable angina pectoris; J98.11 Atelectasis; E03.9 Hypothyroidism, unspecified; E11.9 Type 2 diabetes mellitus without complications; E78.5 Hyperlipidemia, unspecified; Z66 Do not resuscitate; F41.1 Generalized anxiety disorder; I10 Essential (primary) hypertension; J45.909 Unspecified asthma, uncomplicated; K21.9 Gastro-esophageal reflux disease without esophagitis; R00.2 Palpitations; Z85.850 Personal history of malignant neoplasm of thyroid; I25.2 Old myocardial infarction; Z95.5 Presence of coronary angioplasty implant and graft; Z98.51 Tubal ligation status; Z88.8 Allergy status to other drugs, medicaments and biological substances; Z79.82 Long term (current) use of aspirin; Z79.899 Other long term (current) drug therapy
CPT/HCPCS: 36415; 71045; 78452; 80048; 80053; 82040; 83036; 83735; 83880; 84484; 85025; 85610; 85730; 93005; 93017; 99285; A9502; C9898; G0378; J2785

== ENCOUNTER 2019-04-18 05:27 | Observation (INO) | payer MEDICARE ==
[~2019-04-18] VITALS: Ht 157.5 cm; Wt 86.1 kg
[~2019-04-18 05:27] MED LIST changes: -FLUT16SP NS; +FLUT16SP24 NS; +FLUT1BLS INH; +LEVO125T5 PO
--- NOTE | 2019-04-18 05:56 | NUR ---
THIS IS A 73 YO FEMALE COMING IN FOR SOB AND "CHEST PRESSURE" STARTING LAST NIGHT. PATIENT STATES "THE SENSATION WAS THERE WHEN I LAYED DOWN TO GO TO BED, BUT IT DIDN'T HURT. THEN I WOKE UP AT 0330 AND IT WAS BACK SO I FIGURED WITH MY HISTORY I SHOULD COME IN AND GET CHECKED". PATIENT HAS HX OF PREVIOUS MN IN JANUARY 2016 WITH STENTS PLACED. PATIENT SPEAKING IN FULL SENTENCES, DENIES PAIN AT THIS TIME, DESCRIBES IT "IT'S MORE OF A SENSATION AND IT GOES DOWN MY LEFT ARM A LITTLE". DENIES N/V, NO DIAPHORESIS, DENIES ANY TRAUMA OR EVENT THAT COULD CAUSE MUSCLE STRAIN. VSS, NAD, ALL MONITORING IN PLACE, NSR ON MONITOR. CALL LIGHT IN REACH.
[2019-04-18] MEDS ORDERED: NITROGLYCERIN SINGLE TAB 0.4 MG SL PRN (06:00)
[2019-04-18] MEDS ORDERED: ASPIRIN 81 MG TABLET CHEW PO ONE (06:00)
[2019-04-18] MEDS ORDERED: NITROGLYCERIN SINGLE TAB 0.4 MG SL ONE (06:00)
[2019-04-18] MEDS ORDERED: ASPIRIN 81 MG TABLET CHEW ONE (06:01)
--- NOTE | 2019-04-18 06:07 | NUR ---
PATIENT MEDICATED PER EMAR, TOLERATED WELL. PT TO XRAY AT THIS TIME
[2019-04-18 06:37] LABS: BASOPHILS # (AUTO) 0.05 x10^3/uL (0-0.1); BASOPHILS % (AUTO) 1 % (0-1); EOSINOPHILS # (AUTO) 0.15 x10^3/uL (0-0.4); EOSINOPHILS % (AUTO) 3 % (1-7); LYMPHOCYTES # (AUTO) 1.64 x10^3/uL (1-3.4); LYMPHOCYTES % (AUTO) 30 % (22-44); MD NO; MEAN CORPUSCULAR HEMOGLOBIN 29.9 pg (27.0-34.8); MEAN CORPUSCULAR HGB CONC 33.8 g/dL (32.4-35.8); MEAN CORPUSCULAR VOLUME 88.3 fL (80-100); MEAN PLATELET VOLUME 7.9 fL (7.4-10.4); MONOCYTES # (AUTO) 0.37 x10^3/uL (0.2-0.8); MONOCYTES % (AUTO) 7 % (2-9); NEUTROPHILS # (AUTO) 3.29 x10^3/uL (1.8-6.8); NEUTROPHILS % (AUTO) 60 % (42-75); PLATELET COUNT 276 x10^3/uL (130-400); RED BLOOD COUNT 4.35 x10^6/uL (3.82-5.3); RED CELL DISTRIBUTION WIDTH 13.4 % (9.6-15.2)
[2019-04-18 06:39] LABS: ALANINE AMINOTRANSFERASE 32 U/L (12-78); ALBUMIN 3.7 g/dL (3.4-5.0); ANION GAP 7 mmol/L (5-15); CALCIUM 8.7 mg/dL (8.5-10.1); CHLORIDE 107 mmol/L (98-107); CREATININE 0.74 mg/dL (0.55-1.02)
[2019-04-18 06:44] LABS: ALKALINE PHOSPHATASE 57 U/L (45-117); BILIRUBIN,TOTAL 0.4 mg/dL (0.2-1.0); TROPONIN I < 0.015 ng/mL (0.000-0.045)
[2019-04-18] MEDS ORDERED: BACLOFEN 10 MG TABLET PO PRN (07:30)
[2019-04-18] MEDS ORDERED: NITROGLYCERIN 0.4 MG BOTTLE (25 TABS) SL PRN (07:30)
[2019-04-18] MEDS ORDERED: ONDANSETRON 2MG/ML, 2ML IVPush PRN (07:30)
[2019-04-18] MEDS ORDERED: ACETAMINOPHEN 325 MG TABLET PO PRN (07:30)
[2019-04-18] MEDS ORDERED: morphine SULFATE 10 MG/ML, 1ML IV PRN (07:30)
[2019-04-18] MEDS ORDERED: NITROGLYCERIN 0.4 MG/SPRAY SL PRN (07:30)
--- NOTE | 2019-04-18 07:35 | NUR ---
patient at this time reports no sob and reports no chest pain. awaiting room assignment. hospitalist has seen patient.
[2019-04-18 08:09] LABS: CHOL/HDL RATIO 1.8; LDL/HDL RATIO 0.6 (0.5-3.0)
[2019-04-18] MEDS ORDERED: FLUTICASONE INH SCH (09:00)
[2019-04-18] MEDS ORDERED: LOSARTAN 100 MG TAB PO SCH ×2 (09:00→21:00)
[2019-04-18] MEDS ORDERED: VILANTEROL INH SCH (09:00)
[2019-04-18] MEDS ORDERED: ASPIRIN 81 MG TABLET EC PO SCH (09:00)
[2019-04-18] MEDS ORDERED: TEMPLATE NON-FORMULARY MED. (Fexofenadine Hcl** 180 MG) PO SCH (09:00)
[2019-04-18] MEDS ORDERED: LEVOTHYROXINE 125 MCG TABLET PO SCH ×2 (09:00)
[2019-04-18] MEDS ORDERED: AMLODIPINE 2.5 MG TABLET PO SCH ×2 (09:00→21:00)
[2019-04-18] MEDS: SODIUM CHLORIDE FLUSH 10ML SYR IVF SCH ×2 (09:00→21:17)
[2019-04-18] MEDS ORDERED: FLUTICASONE NASAL SPRAY 16GM NAS SCH (09:00)
--- NOTE | 2019-04-18 09:34 | NUR ---
went to medicate patient and she states she takes her daily medications at night time and has already taken her levothyroxine this morning. told this to attending md montgomery, and he stated will retime medications
--- NOTE | 2019-04-18 09:40 | NUR ---
patient refused synthroid secondary to having taken it this morning already.
--- NOTE | 2019-04-18 10:33 | NUR ---
patient in bed and reports no pain. got patient a lunch tray, cardiac diet. patient awaiting room.
--- NOTE | 2019-04-18 10:34 | NUR ---
ordered hospital bed
--- NOTE | 2019-04-18 10:54 | NUR ---
patient on hospital bed
--- NOTE | 2019-04-18 11:07 | NUR ---
patient ate all of lunch
[2019-04-18 13:42] VITALS: BP 121/77
[2019-04-18] MEDS: ALBUTEROL SULFATE 2.5 MG/3 ML NPPB SCH ×2 (14:00→23:14)
[2019-04-18] MEDS: LEVOTHYROXINE 125 MCG TABLET PO SCH (14:00)
[2019-04-18] MEDS: CETIRIZINE 10 MG TABLET PO SCH (15:16)
[2019-04-18 15:51] LABS: TROPONIN I < 0.015 ng/mL (0.000-0.045)
[2019-04-18 17:16] VITALS: BP 121/77
[2019-04-18 20:12] VITALS: BP 124/74
[2019-04-18 20:55] LABS: TROPONIN I < 0.015 ng/mL (0.000-0.045)
[2019-04-18] MEDS ORDERED: ATORVASTATIN 40 MG TABLET PO SCH (21:00)
[2019-04-18] MEDS ORDERED: FENOFIBRATE 145 MG TABLET PO SCH (21:00)
[2019-04-18] MEDS: BUDESONIDE 0.5 MG/2 ML INHA INH SCH (23:14)
[2019-04-19 01:26] VITALS: BP 121/74
[2019-04-19] MEDS: ALBUTEROL SULFATE 2.5 MG/3 ML NPPB SCH ×3 (02:00→15:30)
[2019-04-19] MEDS: LEVOTHYROXINE 125 MCG TABLET PO SCH (05:56)
[2019-04-19] MEDS: CETIRIZINE 10 MG TABLET PO SCH (07:47)
[2019-04-19] MEDS: SODIUM CHLORIDE FLUSH 10ML SYR IVF SCH (07:48)
[2019-04-19 07:59] VITALS: BP 134/81
[2019-04-19] MEDS ORDERED: ASPIRIN 81 MG TABLET EC PO SCH (09:00)
[2019-04-19] MEDS: BUDESONIDE 0.5 MG/2 ML INHA INH SCH (09:00)
[2019-04-19] MEDS ORDERED: REGADENOSON 0.4 MG/5 ML SYRINGE ONE (09:26)
[2019-04-19 14:04] VITALS: BP 132/79
[2019-04-19] MEDS ORDERED: OMEP-110 PO (16:31)
== END 2019-04-19 19:12 | disposition home or self-care (01) ==
LOC: ED 06:28 → SUATTDRO 07:09 → EDIP 07:10 → INTOOBSV 07:10 → OBSVTOIN 07:10 → 5SO 13:30
PROVIDERS: ADMIT Hospitalist; ATTEND Internal Medicine
DX: R07.89 Other chest pain (principal); I10 Essential (primary) hypertension; J45.909 Unspecified asthma, uncomplicated; E78.5 Hyperlipidemia, unspecified; K21.9 Gastro-esophageal reflux disease without esophagitis; I21.9 Acute myocardial infarction, unspecified; I25.10 Atherosclerotic heart disease of native coronary artery without angina pectoris; I25.2 Old myocardial infarction; E11.9 Type 2 diabetes mellitus without complications; E89.0 Postprocedural hypothyroidism; Z79.899 Other long term (current) drug therapy; Z79.82 Long term (current) use of aspirin
CPT/HCPCS: 36415; 71046; 78452; 80053; 80061; 83036; 83880; 84484; 85025; 85379; 93005; 93017; 99285; A9502; G0378; J2785

== ENCOUNTER → 2019-11-26 | Outpatient (CLI) | payer MEDICARE ==
[~2019-11-26] MED LIST changes: +OMEP-110 PO
== END | disposition home or self-care (01) ==
LOC: CFH 09:50
PROVIDERS: ATTEND Internal Medicine
DX: M19.072 Primary osteoarthritis, left ankle and foot (principal); M79.672 Pain in left foot

== ENCOUNTER 2020-02-12 08:01 | Day surgery (SDC) | payer MEDICARE ==
[~2020-02-12] VITALS: Ht 158.8 cm; Wt 83.5 kg
[2020-02-12 08:48] VITALS: BP 146/81
[2020-02-12] MEDS ORDERED: FENTANYL PF 100 MCG/2ML ONE (08:57)
[2020-02-12] MEDS ORDERED: LIDOCAINE 1%, 20ML ONE (08:57)
[2020-02-12] MEDS ORDERED: MIDAZOLAM 1 MG/ML, 2ML ONE (08:57)
[2020-02-12] MEDS ORDERED: SODIUM CHLORIDE 0.9% 1,000 ML IV SCH (09:00)
[2020-02-12] MEDS ORDERED: PLEASE ENTER HEIGHT AND WEIGHT MC SCH (09:00)
[2020-02-12] MEDS ORDERED: FAMO-79 PO (09:01)
[2020-02-12] MEDS ORDERED: BIOT1CAP3 PO (09:01)
[2020-02-12] MEDS ORDERED: NITR0.6T4 SL (09:01)
[2020-02-12 09:06] LABS: BASOPHILS % (AUTO) 1 % (0-1); EOSINOPHILS % (AUTO) 2 % (1-7); LYMPHOCYTES % (AUTO) 28 % (22-44); MEAN CORPUSCULAR HEMOGLOBIN 29.1 pg (27.0-34.8); MEAN CORPUSCULAR HGB CONC 33.2 g/dL (32.4-35.8); MEAN PLATELET VOLUME 8.4 fL (7.4-10.4); MONOCYTES % (AUTO) 8 % (2-9); NEUTROPHILS % (AUTO) 62 % (42-75); PLATELET COUNT 255 x10^3/uL (130-400); RED BLOOD COUNT 4.44 x10^6/uL (3.82-5.3); RED CELL DISTRIBUTION WIDTH 13.4 % (9.6-15.2)
[2020-02-12 09:09] LABS: MD NO
[2020-02-12 09:11] LABS: ANION GAP 5 mmol/L (5-15); CHLORIDE 108 mmol/L (98-107); CREATININE 0.69 mg/dL (0.55-1.02); INTERNATIONAL NORMALIZED RATIO 1.03 (0.93-1.1); PROTHROMBIN TIME 10.9 Seconds (9.6-11.5)
== END 2020-02-12 15:48 | disposition home or self-care (01) ==
LOC: CACL 08:01
PROVIDERS: ATTEND Internal Medicine Cardiovascular Disease
DX: I25.118 Atherosclerotic heart disease of native coronary artery with other forms of angina pectoris (principal); I10 Essential (primary) hypertension; K21.9 Gastro-esophageal reflux disease without esophagitis; E03.9 Hypothyroidism, unspecified; I25.2 Old myocardial infarction; F41.9 Anxiety disorder, unspecified; E78.5 Hyperlipidemia, unspecified; J45.20 Mild intermittent asthma, uncomplicated; M19.90 Unspecified osteoarthritis, unspecified site; E66.3 Overweight; Z68.33 Body mass index [BMI] 33.0-33.9, adult; Z88.8 Allergy status to other drugs, medicaments and biological substances; Z91.018 Allergy to other foods; Z79.82 Long term (current) use of aspirin; Z79.899 Other long term (current) drug therapy; Z72.89 Other problems related to lifestyle; Z91.011 Allergy to milk products; Z98.890 Other specified postprocedural states; Z82.49 Family history of ischemic heart disease and other diseases of the circulatory system; Z83.3 Family history of diabetes mellitus
CPT/HCPCS: 36415; 80048; 85025; 85610; 85730; 93458; 99156; 99157; C1769; C1894; J2250; J3010; Q9967

== ENCOUNTER → 2020-08-27 | Outpatient (CLI) | payer MEDICARE ==
[~2020-08-27] MED LIST changes: +BIOT1CAP3 PO; +FAMO-79 PO; +NITR0.6T4 SL; +OMNIPAQUE 350 MG/ML, 100ML BOTTLE ONE
== END | disposition home or self-care (01) ==
LOC: CFH 11:07
PROVIDERS: ATTEND Internal Medicine
DX: K57.32 Diverticulitis of large intestine without perforation or abscess without bleeding (principal); K44.9 Diaphragmatic hernia without obstruction or gangrene
CPT/HCPCS: 74177; 82565; Q9967